=== PATIENT | male | born 1950 | race Caucasian/White ===

== ENCOUNTER → 2017-06-11 | Outpatient (CLI) | payer MEDICARE ==
[2017-06-11 07:16] LABS: HEMOGLOBIN 14.8 g/dL (14.1-18.0); LYMPH # 2.3 K/mm3 (0.7-4.5); LYMPH % 28.2 % (10-50)
[2017-06-11 10:47] LABS: BUN 22 mg/dL (7-18)
[2017-06-11 10:48] LABS: GFR (ESTIMATED) 61 ML/MIN (>60)
== END ==
LOC: LAB 07:04
PROVIDERS: Internal Medicine Adolescent Medicine
DX: E78.5 Hyperlipidemia, unspecified (principal); E66.9 Obesity, unspecified; I10 Essential (primary) hypertension

== ENCOUNTER → 2017-06-18 | Outpatient (CLI) | payer MEDICARE ==
--- NOTE | 2017-06-18 17:00 | RADIOLOGY REPORT PS360 ---
EXAM: CT LUNG LOW DOSE WO CONTRAST COMPARISON: 06/14/2013 HISTORY: 67-year-old male asymptomatic with greater than 30 pack-year smoking history ORDERING PHYSICIAN: Cortney Cohpra APRN PATIENT AGE: 67 years TECHNIQUE: The exam was performed on a GE Light Speed [address] scanner using 2.96 mGy CTDI. A low dose helical CT CHEST was performed on a multi-detector scanner The LDCT was performed in a facility that meets the criteria for the screening program. Data regarding this exam was submitted to ACR which is an approved registry. The order for this exam indicates that it came as a result of a lung cancer screening counseling shard decision-making visit that included all the elements required of such a visit including smoking cessation. The radiologist interpreting this exam meets the CMS criteria for the LDCT lung cancer screening program. The exam is reported using the Lung-RADS classification scale and reported to the ACR registry. NOTE: This study was performed for the specific purposes of lung cancer screening and is not an alternative to diagnostic chest CT. RADIATION DOSE: CTDI vol(CT dose Index-volume) = 2.9 cmmG DLP (Dose Length Product) = 117.25 mGcm FINDINGS: Stable 3 mm nodule right lower lobe inferiorly and posteriorly. No suspicious nodules. Small fibrotic region right middle lobe unchanged Incidental coronary calcification IMPRESSION: 1. Lung RADS Category: 2, benign 2. Other findings: Coronary artery disease RECOMMENDATIONS: 12 month LDCT screening exam
== END ==
LOC: RAD 07:44
DX: Z87.891 Personal history of nicotine dependence (principal); Z12.2 Encounter for screening for malignant neoplasm of respiratory organs